=== PATIENT | male | born 1990 | race Caucasian/White ===

== ENCOUNTER 2019-10-24 06:39 | Emergency (ER) | payer SELFPAY ==
[~2019-10-24] VITALS: Ht 185.4 cm; Wt 95.3 kg
[2019-10-24 06:43] VITALS: Ht 185.4 cm; Wt 95.3 kg
[2019-10-24 07:14] LABS: PLATELET COUNT 282 x10^3mcL (130-400)
[2019-10-24 07:25] LABS: CALCIUM 9.1 mg/dL (8.5-10.1); CARBON DIOXIDE 25.9 mmol/L (21-32); CHLORIDE SERUM 100 mmol/L (98-107); CREATININE SERUM 1.1 mg/dL (0.7-1.3); GFR1 > 60 mL/min; GLUCOSE SERUM 116 mg/dL (74-106); POTASSIUM SERUM 3.7 mmol/L (3.5-5.1); SODIUM SERUM 137 mmol/L (136-145)
[2019-10-24 07:30] LABS: ALBUMIN 4.2 g/dL (3.4-5.0); ALKALINE PHOSPHATASE 65 U/L (46-116); ALT/SGPT 80 U/L (16-63); AMYLASE 68 U/L (25-115); AST/SGOT 17 U/L (15-37); BILIRUBIN TOTAL 0.22 mg/dL (0.20-1.00); LIPASE 181 IU/L (73-393); TOTAL PROTEIN, SERUM 7.9 g/dL (6.4-8.2)
[2019-10-24 10:13] VITALS: BP 136/75
== END 2019-10-24 10:13 | disposition home or self-care (01) ==
LOC: ED 06:39
PROVIDERS: Emergency Medicine
DX: K80.50 Calculus of bile duct without cholangitis or cholecystitis without obstruction (principal)
CPT/HCPCS: J1885; J2270; J2405; J2765; J3010; J7030; Q0092